=== PATIENT | female | born 1980 | race Caucasian/White ===

== ENCOUNTER → 2020-05-22 14:16 | Outpatient (CLI) | payer OTHER, SELFPAY ==
--- NOTE | 2020-05-22 | DI.US.S_ITS ---
PROCEDURE: US PELVIC COMPLETE INDICATIONS: Pelvic and perineal pain TECHNIQUE: Real-time scanning was performed of the pelvic organs, with image documentation. Additional endovaginal scanning was necessary due to incomplete visualization of the adnexal and endometrial structures by transabdominal scanning. COMPARISON: None. FINDINGS: Uterus: Uterus is normal in size at 9.3 x 4.5 x 6.0 cm. The endometrium measures 5-6 mm in combined thickness. Suggestion of a subcentimeter right posterior intramural uterine fibroid measuring 9 x 7 x 6 mm. Ovaries: Right ovary measures 3.2 x 2.2 x 3.1 cm. The left ovary measures 3.7 x 1.7 x 2.5 cm. No evidence of ovarian torsion. There is a complex cystic lesion involving the right ovary measuring 2.3 x 2.2 x 2.4 cm, which could be physiologic involuting follicle, technically nonspecific . Other: No pathologic free abdominal or pelvic fluid. IMPRESSION: Probable subcentimeter uterine fibroid as above Right ovarian complex cystic lesion probably involuting or hemorrhagic physiologic follicle. This could be confirmed with repeat ultrasound in 6-12 weeks, as the patient's symptoms warrant. Dictated by: Luc Hughes M.D. on 05/22/2020 at 16:32 Approved by: Luc Hughes M.D. on 05/22/2020 at 16:37
== END ==
PROVIDERS: Family Provider Family Medicine; PCP Family Medicine; Referring Provider Family Medicine; Visit Provider Family Medicine
DX: R10.2 Pelvic and perineal pain (principal); N83.201 Unspecified ovarian cyst, right side
CPT/HCPCS: 76830; 76856